=== PATIENT | female | born 1955 | race Caucasian/White ===

== ENCOUNTER 2020-05-21 10:56 | Emergency (ER) | payer BC ==
[2020-05-21] MEDS ORDERED: Triamcinolone Acetonide 40 MG/ML 1 ML SDV INJECT ONE (11:37)
--- NOTE | 2020-05-21 11:39 | EDM.PDOC ---
ED HPI GENERAL MEDICAL PROBLEM - General Chief Complaint: General Stated Complaint: allergies Time Seen by Provider: 05/21/20 11:23 Source of Information: Reports: Patient History Limitations: Reports: No Limitations - History of Present Illness INITIAL COMMENTS - FREE TEXT/NARRATIVE: Patient comes to ER requesting IM steroid shot to help with her eye allergies. Long history of eye irritation/swelling to some environmental exposures. Has medication at home for this but when things become more severe needs steroids to assist with symptoms. Usually is able to get the shot at the clinic but today is Friday. Has red conjunctiva, mildly puffy lids bilaterally. Some clear tears. No pain. Feels itchy/irritated. No other acute changes reported during ROS. Denies visual changes. - Related Data Allergies Allergy/AdvReac Type Severity Reaction Status Date / Time gentamicin Allergy Edema Verified 05/21/20 11:02 Home Meds: Home Meds Cholecalciferol (Vitamin D3) [Vitamin D] 5,000 units PO DAILY 08/02/18 [History] Mv-Min/Iron/Folic/Calcium/Vitk [Women's Multivitamin Tablet] 1 each PO DAILY 08/02/18 [History] Primidone 250 mg PO BID 08/02/18 [History] Vit A/Vit C/Vit E/Zinc/Copper [Preservision] 1 tab PO DAILY 08/02/18 [History] Vitamin B Complex 1 each PO DAILY 08/02/18 [History] Loteprednol Etabonate [Lotemax] 1 dose TOP ASDIRECTED 05/21/20 [History] Past Medical History HEENT History: Reports: Allergic Rhinitis, Glaucoma, Impaired Vision, Other (See Below) Other HEENT History: Reading glasses. 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 ED EXAM, GENERAL - Physical Exam Exam: See Below Exam Limited By: No Limitations General Appearance: Alert, WD/WN, No Apparent Distress Eye Exam: Bilateral Eye: Conjunctival Injection, EOMI, Periorbital Changes (mild bilateral upper and lower lid edema), PERRL Nose: No: Nasal Deformity, Nasal Swelling, Nasal Drainage Head: Atraumatic. No: Facial Swelling, Facial Tenderness Neck: Supple Respiratory/Chest: No Respiratory Distress Neurological: Alert, Oriented, Normal Cognition, Normal Gait Psychiatric: Normal Affect, Normal Mood Skin Exam: Warm, Dry Course - Vital Signs Last Recorded V/S: Last Vital Signs Temp 37.2 C 05/21/20 10:59 Pulse 72 05/21/20 10:59 Resp 18 05/21/20 10:59 BP 104/74 05/21/20 10:59 Pulse Ox 100 05/21/20 10:59 - Orders/Labs/Meds Meds: Medications Discontinued Medications Generic Name Dose Route Start Last Admin Trade Name Freq PRN Reason Stop Dose Admin Triamcinolone Acetonide 40 mg 05/21/20 11:37 05/21/20 11:46 Kenalog-40 INJECT 05/21/20 11:38 40 mg ONETIME ONE Administration - Re-Assessments/Exams Free Text/Narrative Re-Assessment/Exam: 05/21/20 13:56 Limited visit. OK to receive IM Kenalog 40mg. To follow up as needed. Departure - Departure Time of Disposition: 11:50 Disposition: Home, Self-Care 01 Condition: Good Clinical Impression: Allergic conjunctivitis Qualifiers: Laterality: bilateral Qualified Code(s): H10.13 - Acute atopic conjunctivitis, bilateral - Discharge Information *PRESCRIPTION DRUG MONITORING PROGRAM REVIEWED*: Not Applicable *COPY OF PRESCRIPTION DRUG MONITORING REPORT IN PATIENT KAILYN: Not Applicable Referrals: Lakia Murphy PA [Primary Care Provider] - Forms: ED Department Discharge Additional Instructions: See if this dose improves the current reaction. Follow up as needed if problems return/continue! Sepsis Event Note (ED) - Evaluation Sepsis Screening Result: No Definite Risk - Focused Exam Vital Signs: Vital Signs Temp Pulse Resp BP Pulse Ox 05/21/20 10:59 37.2 C 72 18 104/74 100
== END 2020-05-21 11:55 | disposition home or self-care (01) ==
LOC: LL.ED 10:56
DX: H10.13 Acute atopic conjunctivitis, bilateral (principal); Z88.1 Allergy status to other antibiotic agents; Z79.899 Other long term (current) drug therapy
CPT/HCPCS: 96372; 99283; J3301

== ENCOUNTER 2022-06-27 10:08 | Emergency (ER) | payer MEDICARE, OTHER ==
[2022-06-27] MEDS ORDERED: Triamcinolone Acetonide 40 MG/ML 1 ML SDV IM ONE (10:31)
== END 2022-06-27 11:10 | disposition home or self-care (01) ==
LOC: LL.ED 10:08
DX: H10.33 Unspecified acute conjunctivitis, bilateral (principal); Z88.1 Allergy status to other antibiotic agents; Z79.899 Other long term (current) drug therapy
CPT/HCPCS: 96372; 99283; J3301